=== PATIENT | male | born 1990 | race Caucasian/White ===

== ENCOUNTER 2017-07-31 07:01 | Emergency (ER) | payer BC, OTHER ==
--- NOTE | 2017-07-31 07:25 | ERNOTE ---
Upper Extremity HPI - Narrative Date of Service: 07/31/17 - General Extremities Pain Location: shoulder: left - felt a sudden "pop" in left shoulder and since then unable to lift left arm Time Seen by Provider: 07/31/17 07:16 Source: patient Exam Limitations: no limitations - Immun/Allergies/Home Medications Immunizations: IMMUNIZATION HX Immunizations Up to Date Yes History of Influenza Vaccine No Hx Pneumococcal Vaccination No Allergies/Adverse Reactions: Allergies Allergy/AdvReac Type Severity Reaction Status Date / Time Sulfa (Sulfonamide Allergy Unknown Verified 07/31/17 07:09 Antibiotics) Home Medications: HOME MEDICATIONS NK [No Home Medication] 07/31/17 [Last Taken Unknown] - History of Present Illness Narrative: Patient presents to the emergency room after he felt a pop in his left shoulder approximately 30 minutes ago at work. States that he was carrying a jackhammer when he felt a sudden pop in his left shoulder then he felt weakness and had to let go of the jackhammer. Instead he has not been able to raise his left arm and he has pain in his left shoulder. There is no radiation of this pain he did not take any pain medications he is allergic to sulfa Review of Systems - Review of Systems Constitutional: Present: no symptoms reported EYE: Present: no symptoms reported ENT: Present: no symptoms reported Respiratory: Present: no symptoms reported Cardiology: Present: no symptoms reported Gastrointestinal/Abdominal: Present: no symptoms reported Genitourinary: Present: no symptoms reported Musculoskeletal: Present: See HPI Skin: Present: no symptoms reported - Patient's Past Medical History Patient History - Medical: No pertinent hx Patient History - Cardiac/Respiratory: No pertinent hx Patient History - Cancer: No Hx of Cancer Patient History - Surgical Procedures: T & A, Orthopedic - Family History Grandpa Family History - Cancer: Colon - Social History Living Situations: home Smoking Status: Never smoker Have you smoked in the past 12 months: No Do you dip or chew tobacco: No - Immunizations Immunizations Up to Date: Yes Hx Pneumococcal Vaccination: No History of Influenza Vaccine: No Physical Exam - Physical Exam General Appearance: Present: wd/wn, alert, no apparent distress Head Exam: Present: normal inspection, no evidence of injury Extremity Exam: Present: other - this patient is very tender upon palpation of the left shoulder the head of the humerus feels slightly more anterior and inferior. Patient is unable to lift his left arm without excruciating pain. He is unable to abduct it and he is unable to flex it. I see no ecchymoses redness or major deformities. ED Progress - Vital Signs Patient's Vital Signs:: I have reviewed the patient's vital signs. Vital Signs: Vital Signs 07/31/17 07:06 Temperature 36.5 C Pulse Rate 98 Respiratory 16 Rate Blood Pressure 189/94 O2 Sat by Pulse 98 Oximetry - Progress/Reassessment Chief Complaint: Shoulder Injury/Pain Plan - Plan Plan: Patient's x-ray is negative as read by the radiologist. At this time we will go ahead and place patient in a sling he is to follow-up with his primary care doctor in 48 hours. He will be kept off work as he has pain in his left shoulder this examiner tried to give the patient a prescription for ibuprofen 800 mg however he refused stating he had some at home. Departure Clinical Impression: Shoulder pain Qualifiers: Chronicity: acute Laterality: left Qualified Code(s): M25.512 - Pain in left shoulder - Departure Disposition: Home self-care Condition: Stable Instructions: Shoulder Pain, [id number] Additional Instructions: Please follow up with occupational health and please follow up with her primary care physician in 48 hours for follow-up of your injury.
[2017-07-31 08:13] VITALS: BP 135/85
== END 2017-07-31 08:01 | disposition home or self-care (01) ==
LOC: ER 07:01
DX: M25.512 Pain in left shoulder (principal); X58.XXXA Exposure to other specified factors, initial encounter; Y93.89 Activity, other specified; Y92.69 Other specified industrial and construction area as the place of occurrence of the external cause; Y99.0 Civilian activity done for income or pay